=== PATIENT | male | born 1975 | race Caucasian/White ===

== ENCOUNTER 2022-11-02 09:40 | Day surgery (SDC) | payer MEDICAID ==
[2022-11-01 14:40] LABS: COVID AG,FIA SOURCE NASAL SWAB
[~2022-11-02] VITALS: Ht 180.3 cm; Wt 81.8 kg
[~2022-11-02 09:40] MED LIST: SODIUM CHLORIDE 0.9% 1,000 ML IV ONE; SODIUM CHLORIDE 0.9% 1,000 ML ONE
[2022-11-02] MEDS ORDERED: PROPOFOL 1% 20 ML VIAL IVP ONE (09:41)
[2022-11-02] MEDS ORDERED: LIDOCAINE/PF 2% 5 ML VIAL CAUDAL ONE (09:41)
[2022-11-02] MEDS ORDERED: OXYGEN THERAPY IH SCH (10:15)
== END 2022-11-02 10:50 | disposition home or self-care (01) ==
LOC: SURGERY 09:40
PROVIDERS: ATTEND Specialist
DX: K21.00 Gastro-esophageal reflux disease with esophagitis, without bleeding (principal); K29.70 Gastritis, unspecified, without bleeding; K25.9 Gastric ulcer, unspecified as acute or chronic, without hemorrhage or perforation; F12.90 Cannabis use, unspecified, uncomplicated; Z79.899 Other long term (current) drug therapy; I10 Essential (primary) hypertension; Z98.890 Other specified postprocedural states; Z20.822 Contact with and (suspected) exposure to COVID-19
CPT/HCPCS: 87426; 43239; 88342; 88305; 88312; C9803; C1769; J2704; J3490; J7030